=== PATIENT | male | born 1940 | race Caucasian/White ===

== ENCOUNTER 2017-12-31 09:38 | Emergency (ER) | payer MEDICARE ==
[~2017-12-31] VITALS: Ht 160 cm; Wt 77.3 kg
[2017-12-31] MEDS ORDERED: BLOOD THINNER PO (09:58)
[2017-12-31] MEDS ORDERED: OxyCODONE HCL/ACETAMINOPHEN 5-325 MG TABLET PO ONE (11:45)
[2017-12-31 13:06] VITALS: BP 140/80
== END 2017-12-31 13:08 | disposition home or self-care (01) ==
LOC: EMS 09:43
DX: S42.201A Unspecified fracture of upper end of right humerus, initial encounter for closed fracture (principal); M19.011 Primary osteoarthritis, right shoulder; I10 Essential (primary) hypertension; W19.XXXA Unspecified fall, initial encounter; Y93.89 Activity, other specified; Y92.89 Other specified places as the place of occurrence of the external cause; Y99.8 Other external cause status
CPT/HCPCS: 73200; 99284